=== PATIENT | male | born 1945 | race Hispanic/Latino ===

== ENCOUNTER 2019-07-22 09:08 | Outpatient (CLI) | payer MEDICARE ==
[2019-07-22 10:27] LABS: Hemoglobin 13.2 g/dL (14.0-18.0); Mean Corpuscular HGB CONC 33.6 g/dL (32.0-36.0); Mean Corpuscular Hemoglobin 30.7 pg (27.0-31.0); Mean Corpuscular Volume 91.2 fL (78.0-98.0); Mean Platelet Volume 7.2 fL (7.4-10.4); Platelet Count 325 thou/uL (130-400); RBC Distribution Width 11.6 % (11.5-14.5); Red Blood Cell (RBC) Count 4.32 mill/uL (4.70-6.10); White Blood Cell (WBC) Count 6.6 thou/uL (4.8-10.8)
[2019-07-22 10:32] LABS: PTT 32.7 SEC (22.9-36.1); Prothrombin Time 13.1 SEC (12.0-14.7)
[2019-07-22 10:41] LABS: Bilirubin Negative (Negative); Blood, Urine Negative (Negative); Clarity Clear (Clear); Glucose, Urine (Dipstick) Normal (Negative); Leukocyte 75 Leu/uL (Negative); Nitrite Negative (Negative); Protein, Urine (Dipstick) Negative (Neg-Trace); Squamous Epithelial None Seen HPF (0-3); Urobilinogen Normal mg/dL (Less than 2)
[2019-07-22 10:42] LABS: Bacteria/HPF 1+ HPF (None Seen)
[2019-07-22 10:46] LABS: Anion Gap 12 mmol/L (10-20); BUN (Urea Nitrogen) 16 mg/dL (8.4-25.7); Calc. Creatinine Clearance 0 mL/min (70-130); Calcium 9.4 mg/dL (7.8-10.44); Carbon Dioxide 26 mmol/L (23-31); Chloride 107 mmol/L (98-107); Estimated GFR-MDRD Greater than 90; Glucose 93 mg/dL (83-110); Potassium 4.5 mmol/L (3.5-5.1); Sodium 140 mmol/L (136-145)
--- NOTE | 2019-07-22 16:35 | EKG ---
Test Reason : Blood Pressure : / mmHG Vent. Rate : 074 BPM Atrial Rate : 074 BPM P-R Int : 166 ms QRS Dur : 098 ms QT Int : 372 ms P-R-T Axes : 061 016 000 degrees QTc Int : 412 ms Normal sinus rhythm Normal ECG No previous ECGs available Confirmed by DR. Amelie SAGE ([id number]) on 07/22/2019 4:35:39 PM Referred By: PARAMJIT Confirmed By:DR. Amelie SAGE
== END 2019-07-22 09:09 | disposition home or self-care (01) ==
LOC: LABBT 09:08
PROVIDERS: ATTEND Urology
DX: Z01.818 Encounter for other preprocedural examination (principal); R97.20 Elevated prostate specific antigen [PSA]; N52.9 Male erectile dysfunction, unspecified; I10 Essential (primary) hypertension; N40.0 Benign prostatic hyperplasia without lower urinary tract symptoms
CPT/HCPCS: 80048; 81001; 85027; 85610; 85730; 87081; 87086; 93005; 93010

== ENCOUNTER 2019-07-27 06:39 | Day surgery (SDC) | payer MEDICARE ==
[2019-07-22 09:18] VITALS: BMI 25.2
[2019-07-27] MEDS ORDERED: cefTRIAXone\\ROCEPHIN 1 GM VIAL ONE (07:32)
[2019-07-27] MEDS ORDERED: Sodium Chloride 0.9% 100 ML ONE (07:33)
[2019-07-27] MEDS ORDERED: Levofloxacin 500 mg/D5W 100 ml Premix Bag ONE (07:33)
[2019-07-27] MEDS ORDERED: Propofol 1,000 MG/100 ML VIAL IV ONE (09:27)
[2019-07-27] MEDS ORDERED: Fentanyl 100 MCG/2 ML VIAL ONE (09:27)
[2019-07-27] MEDS ORDERED: Midazolam HCl 2 mg/2 ml Vial ONE (09:57)
[2019-07-27] MEDS ORDERED: Phenazopyridine HCl 97.5 MG TABLET ONE (10:57)
--- NOTE | 2019-07-27 11:25 | OP ---
DATE OF PROCEDURE: 07/27/2019 PREOPERATIVE DIAGNOSES: 1. A 73-year-old male with history of elevated PSA. 2. Newly-appreciated microscopic hematuria. 3. Impotence. POSTOPERATIVE DIAGNOSES: 1. A 73-year-old male with history of elevated PSA. 2. Newly-appreciated microscopic hematuria. 3. Impotence. PROCEDURES PERFORMED: Flexible cystoscopy, transrectal ultrasound volume study, 12-core needle prostate biopsy. ANESTHESIA: TIVA. COMPLICATIONS: None apparent. DISPOSITION: To recovery room in stable condition. INDICATIONS FOR PROCEDURE AND HISTORY: Mr. Weathers is a pleasant 73-year-old male, with history of elevated PSA of 7.3, unremarkable digital rectal exam. He presents today for prostate biopsy under TIVA anesthesia as he has significant anxiety to proceed under local. Preoperative urine demonstrated microscopic hematuria, newly appreciated, therefore, a cystoscopy concomitantly advised in which elective CT is advised. He desires to proceed. Risks and complications including, but not limited to, bleeding, pain, infection, urosepsis, blood per rectum, hematuria warranting secondary procedure, chronic pain was discussed with him in detail and he desired to proceed. DESCRIPTION OF PROCEDURE: After an informed consent was signed, the patient to taken to the operating room, placed in supine position with the genital area prepped and draped in the usual surgical sterile fashion. A flexible cystoscope was passed, which demonstrated normal anterior and posterior urethra. Prostatic urethra did demonstrate a bilobar hyperplasia of the prostate moderately obstructing with some inflammatory component of the prostatic urethra. Bladder was entered, which demonstrated no evidence of bladder lesion of concern. The ureteral orifices were about 2 to 3 mm proximal to the bladder neck with no evidence of intravesical median lobe. There was no bladder stones or lesion of concern. At this time, we placed a 16-Divehi Garay catheter and the patient was transitioned to a left lateral decubitus position. A transrectal ultrasound probe was passed, and a volume study was performed, which demonstrated length of 4.75, width of 5.1, height of 3.8, volume estimated to be 49.5 g. We performed 12 standard needle core prostate biopsy, which he tolerated uneventfully. The Garay demonstrated mely clear urine and this was removed in the OR. The patient is discharged with Levaquin for course of 7 days, Azo p.r.n., I will initiate Flomax as he does have moderate bilobar hyperplasia of the prostate, 0.4 mg, #30 provided. He will return to clinic next week to monitor his voiding status and review his pathology. Job ID: [id number] [facility]
[2019-07-27] MEDS ORDERED: Ondansetron PF 4 MG/2 ML Vial ONE (11:29)
[2019-07-27] MEDS ORDERED: Promethazine HCl 25 MG/ML VIAL ONE (12:55)
== END 2019-07-27 13:30 | disposition home or self-care (01) ==
LOC: SDC 06:39
PROVIDERS: ATTEND Urology
PROC: 0VB03ZX Excision of Prostate, Percutaneous Approach, Diagnostic (ICD-10-PCS; principal; 2019-07-27)
DX: N52.9 Male erectile dysfunction, unspecified (principal); R97.20 Elevated prostate specific antigen [PSA]; R31.29 Other microscopic hematuria; N40.0 Benign prostatic hyperplasia without lower urinary tract symptoms; I10 Essential (primary) hypertension; E78.5 Hyperlipidemia, unspecified; Z87.891 Personal history of nicotine dependence; Z79.82 Long term (current) use of aspirin; Z79.899 Other long term (current) drug therapy
CPT/HCPCS: 88305; 88341; 88342; J0696; J1956; J2250; J2405; J2550; J2704; J3010; J3490

== ENCOUNTER 2019-09-16 09:17 | Outpatient (CLI) | payer MEDICARE ==
[2019-09-16] MEDS ORDERED: Iopamidol-370 76% 500 ML 1 ML ONE (10:06)
[2019-09-16 10:14] LABS: Estimated GFR-MDRD - POC Greater than 90
--- NOTE | 2019-09-16 12:23 | CT ---
CT ABDOMEN AND PELVIS WITH AND WITHOUT IV CONTRAST: Date: 09/16/2019 HISTORY: Microscopic hematuria. FINDINGS: There is a calcified granuloma in the left lung base and the left lobe of the liver. There is a calci fied granuloma in the left lung base. There are calcified granulomas in the left lobe of the liver. T he spleen, pancreas, and adrenal glands are normal. No calcified gallstones are seen. No calculi noted in the kidneys, ureters, or the urinary bladder. No hydroureteronephrosis seen on ei ther side. The prostate is enlarged. Postcontrast images demonstrate no evidence of renal mass. There is normal contrast excretion into the ureters and urinary bladder. No free air, free fluid, or lymphadenopathy seen in the abdomen or pelvis. There are vascular calcifi cations without evidence of aneurysmal dilatation of the abdominal aorta. There are degenerative guajardo ges in the spine. There are fat-containing bilateral inguinal herniae, left larger than right. IMPRESSION: 1. No CT evidence of urinary tract calculi/obstruction or renal mass. 2. Prostatic enlargement. POS: OFF
== END 2019-09-16 09:18 | disposition home or self-care (01) ==
LOC: BICCT 09:17
PROVIDERS: ATTEND Urology
DX: R31.29 Other microscopic hematuria (principal); N40.0 Benign prostatic hyperplasia without lower urinary tract symptoms
CPT/HCPCS: 74178; 82565